=== PATIENT | female | born 1980 | race Caucasian/White ===

== ENCOUNTER 2025-05-23 19:38 | Emergency (ER) | payer BC, SELFPAY ==
[2025-05-23 19:39] VITALS: BMI 31.3
[2025-05-23 20:00] VITALS: BP 156/110; BP 157/108; PULSE 72; RESP 17; TEMP 36.9; O2SAT 98
--- NOTE | 2025-05-23 20:04 | EKG_ITS ---
[facility] Test Date: 2025-05-23 Pat Name: CHER NAGY Department: Room: - Gender: Female [employer]: : 1980 Requested By: Homer Armstrong Order Number: [id number] Reading MD: Homer Armstrong Measurements Intervals [place] Rate: 71 P: 30 ND: 151 QRS: 48 QRSD: 82 T: 38 QT: 395 QTc: 429 Interpretive Statements SINUS RHYTHM WITH SINUS ARRHYTHMIA No previous ECG available for comparison /store/S0/[id number]
--- NOTE | 2025-05-23 20:05 | XR_ITS ---
Examination: CT brain head without contrast. 2-D sagittal coronal reconstructions Date and time of exam:May 23, 2025, 2106 hours INDICATIONS: Dizziness vomiting beginning 2 days ago CTDI: vol (mGy):48.3 DLP: (mGycm):927 Technique: Multiple CT axial sections of the brain have been obtained, 5 mm slice thickness. Contrast has not been administered. 2-D sagittal, coronal reconstructions have been obtained Low dose protocols were performed. One or more of the following dose reduction techniques were used; automated exposure control, adjustment of the mA and/or KV according to patient size, use of iterative reconstruction technique. Findings: No significant ventricular enlargement. Intra-axial or extra-axial hemorrhage density is not seen. No mass effect or midline shift Basal cisterns are not remarkable. Fourth ventricle is midline. Cranial vault intact. Impression: Negative for acute hemorrhage, mass effect or midline shift Advise clinical correlation follow up accordingly
--- NOTE | 2025-05-23 20:05 | PD.EDRME ---
Rapid Medical Screening Exam E Arrival date/time: 05/23/25 19:38 Chief Complaint: Dizziness Time Seen by Provider: 05/23/25 19:44 Vital signs: Vital Signs Temperature 98.5 F 05/23/25 20:00 Pulse Rate 72 05/23/25 20:00 Respiratory Rate 17 05/23/25 20:00 Blood Pressure 156/110 H 05/23/25 20:00 Pulse Oximetry (%) 98 05/23/25 20:00 Oxygen Delivery Method Room Air 05/23/25 20:00 [facility] Narrative: Dizziness/vertigo and vomiting since yesterday. Denies fever, URI symptoms, ear pain, headache
[2025-05-23 20:34] LABS: Basophils # (Auto) 0.1 Thou/mm3 (0.0-0.2); Basophils % (Auto) 1 % (0-2.5); Eosinophils # (Auto) 0.1 Thou/mm3 (0.0-0.5); Eosinophils % (Auto) 0 % (0-10); Hematocrit 41.8 % (36.0-46.0); Immature Granulocytes % (Auto) 0 % (0-0); Immature Granulocytes Auto 0.06 Thou/mm3 (0.00-0.00); Lymphocytes # (Auto) 2.6 Thou/mm3 (1.0-4.8); Lymphocytes % (Auto) 16 % (10-50); Mean Corpuscular HGB Conc 33.5 g/dl (31.0-37.0); Mean Corpuscular Hemoglobin 29.2 pg (25.0-35.0); Mean Corpuscular Volume 87 fL (80-100); Monocytes # (Auto) 0.9 Thou/mm3 (0.0-0.8); Monocytes % (Auto) 5 % (0-12); Neutrophils # (Auto) 12.5 Thou/mm3 (1.8-7.7); Neutrophils % (Auto) 77 % (37-80); Nucleated Red Blood Cell % 0 /100 WBC (0); Platelet Count 267 Thou/mm3 (140-440); RDW Standard Deviation 45.1 fL (36.4-46.3); Red Blood Count 4.79 Miln/mm3 (4.00-5.20); White Blood Count 16.1 Thou/mm3 (3.6-11.0)
[2025-05-23] MEDS: ONDANSETRON INJ 2 MG/ML INJ 2 ML 4 MG IM (20:34)
[2025-05-23] MEDS: DIAZEPAM 5 MG TABLET PO (20:55)
[2025-05-23 20:56] LABS: Alanine Aminotransferase 18 U/L (10-49); Albumin, Serum 4.8 gm/dL (3.5-5.0); Albumin/Globulin Ratio 2.2 (1.2-2.2); Alkaline Phosphatase 72 U/L (46-116); Anion Gap 12 (7-16); Aspartate Amino Transferase 17 U/L (0-34); BUN/Creatinine Ratio 11 Ratio (12-20); Bilirubin,Total 0.6 mg/dL (0.3-1.2); Blood Urea Nitrogen 11 mg/dL (9-23); Calcium 9.9 mg/dL (8.3-10.6); Calcium (Corrected) 9.9 mg/dL (8.5-10.1); Carbon Dioxide 22.4 mMol/L (20.0-31.0); Chloride 103 mMol/L (98-107); Estimated Creatinine Clearance 82.1 mL/min (>60); Globulin 2.2 gm/dL (2.3-3.5); Glucose 136 mg/dL (74-106); Osmolality,Calculated 275 (275-295); Potassium 3.7 mMol/L (3.4-5.1); Sodium 137 mMol/L (136-145); Troponin I < 0.002 ng/mL (0.0-0.045); eGFR > 60 See Note
[2025-05-23 22:40] LABS: Collection Type, Urine Clean Catch
[2025-05-23 22:55] LABS: Amorphous Crystals,Urine Present (Absent); Bacteria,Urine 2+; Bilirubin,Urine Negative (Negative); Blood,Urine Negative (Negative); Clarity,Urine Turbid (Clear/Hazy); Color,Urine Lt-Yellow (Lt Yel-Yel); Glucose, Urine Negative (Negative); Ketones,Urine 1+ (Negative); Leukocyte Esterase,Urine Negative (Negative); Nitrite,Urine Negative (Negative); PH,Urine 7.5 (5.0-7.0); Protein,Urine Trace (Neg - Trace); RBC,Urine 8 /hpf (0-3); Specific Gravity,Urine 1.021 (1.001-1.035); Squamous Epithelial Cell,Urine 2 /hpf (0-5); Urobilinogen,Urine Negative mg/dL (0.0-1.0); WBC,Urine 1 /hpf (0-5)
[2025-05-24 00:42] VITALS: BP 162/104; PULSE 73; RESP 19; TEMP 36.5; O2SAT 100
--- NOTE | 2025-05-24 00:42 | PD.EDDIZZY ---
ED Dizzyness RME/HPI General Chief Complaint: Dizziness Stated Complaint: VERITIGO Time Seen by Provider: 05/23/25 19:44 Source: patient, family, RN notes reviewed and old records reviewed Arrival date/time: 05/23/25 19:38 Mode of arrival: wheelchair Limitations: no limitations RME / HPI RME / HPI Narrative: 45yof healthy female presents to ED for dizziness/vertigo that initiated yesterday. Denies hx of vertigo. Patient states dizziness worsens with position and head movement, reports multiple episodes of nausea/vomiting today. No fever, URI symptoms, ear pain, headache, vision changes, sob, cp or syncope reported. No medication so treatments since symptom onset. Related Data Previous Rx's ?Medication ?Instructions ?Recorded meclizine 25 mg tablet 25 mg PO Q8HR PRN dizziness #20 05/24/25 tabs ondansetron 4 mg disintegrating 4 mg PO Q6H PRN nausea and 05/24/25 tablet vomiting #10 tabs Allergies Allergy/AdvReac Type Severity Reaction Status Date / Time No Known Allergies Allergy Verified 05/24/25 07:50 Review of Systems Review of Systems Systems Reviewed: All systems reviewed, normal except as documented Constitutional Constitutional: Denies chills, Denies fever(s) and Denies headache(s) Eyes Eyes: Denies blurry vision and Denies loss of vision ENT Ears, Nose, Mouth, and Throat: Denies otalgia, Denies headache(s), Denies nasal congestion and Reports vertigo Cardiovascular Cardiovascular: Denies chest pain, Denies dyspnea and Denies syncope Respiratory Respiratory: Denies dyspnea Gastrointestinal Gastrointestinal: Denies abdominal pain, Reports nausea and Reports vomiting Neurologic Neurologic: Denies localized weakness, Denies headache(s), Denies loss of vision, Denies syncope and Reports vertigo Past Medical History Past Medical History GASTROINTESTINAL: Positive Obesity Surgical History OTHER SURGICAL HX: denies pshx Social History SMOKING STATUS: Never smoker SUBSTANCE USE: does not use ALCOHOL: Never ED Exam General Limitations: Present no limitations General appearance: Present alert and in no apparent distress Head Head exam: Present atraumatic and normocephalic Eye Eye exam: Present normal appearance, PERRL and EOMI ENT ENT exam: Present normal exam and mucous membranes moist Neck Neck exam: Present normal inspection and full ROM Chest Chest inspection: Present normal inspection and symmetric chest wall rise Respiratory Respiratory exam: Present normal lung sounds bilaterally; Absent respiratory distress Cardiovascular Cardiovascular exam: Present regular rate and normal rhythm Abdominal Exam Abdominal exam: Present soft; Absent distention or tenderness Extremities Exam Extremities exam: Present normal inspection and full ROM Neurological Exam Neurological exam: Present alert, oriented X3 and CN II-XII intact; Absent motor sensory deficit Psychiatric Psychiatric exam: Present normal affect and normal mood Skin Skin exam: Present warm, dry and intact Course Course Course Narrative: 0040: Patient states she is still feeling dizzy after Valium and Zofran. CT head is negative. Labs reassuring. Offered IVF and MRI brain however, patient does not want to wait in the ED overnight. States she will drink pedialyte at home and return in the morning for MRI imaging. Quality Measures none Orders Category Date Time Status EKG (ED ONLY) *Do not use* NOW Care 05/23/25 20:[address] head/brain wo con Stat Exams 05/23/25 20:05 Completed EKG (ED Only) Stat Exams 05/23/25 20:04 Draft CBC Stat Lab 05/23/25 20:16 Completed CMP [Comprehensive Metabolic Panel] Stat Lab 05/23/25 20:16 Completed Troponin I Stat Lab 05/23/25 20:16 Completed UA [Urinalysis] Stat Lab 05/23/25 22:27 Completed Diazepam [Valium] Med 05/23/25 20:06 Discontinued 5 mg PO X1 ONE Ondansetron Inj [Zofran Inj] Med 05/23/25 20:20 Discontinued 4 mg IM X1 ONE Ondansetron Odt [Zofran Odt] Med 05/23/25 20:06 Discontinued 4 mg PO X1 ONE Vital Signs Vital signs: Vital Signs Temperature 98.5 F 05/23/25 20:00 Pulse Rate 72 05/23/25 20:00 Respiratory Rate 17 05/23/25 20:00 Blood Pressure 156/110 H 05/23/25 20:00 Pulse Oximetry (%) 98 05/23/25 20:00 Oxygen Delivery Method Room Air 05/23/25 20:00 PROCEDURES: EKG Interpretation #1: Date of EK05/23/25 Rate: 71 Interpretation: Interpreted by me EKG Impression: Normal sinus rhythm, No acute ST-T changes, No ectopy, No ischemic changes, Normal QRS, Normal intervals and Normal axis Additional EKG comment: No stemi Dizziness MDM Narrative MDM Narrative:: 45yof healthy female presents to ED for dizziness/vertigo that initiated yesterday. Denies hx of vertigo. Patient states dizziness worsens with head movement, reports multiple episodes of nausea/vomiting today. No fever, URI symptoms, ear pain, headache, vision changes, sob, cp or syncope reported. No medication so treatments since symptom onset. Patient reassessed. Vertigo has mildly improved but still present. Patient trying to limit head movements to decrease symptoms. ED workup reassuring, patient is neurologically intact. Due to persistent vertigo, MRI brain was recommended. Patient wishes to return to ED in morning for imaging. She is tolerating po in ED. Stable for discharge, strict RTED precautions given. Patient data External records reviewed:: None (No prior visits) Clinical information provided by:: patient Social determinants that could affect healthcare access:: none Patient has the following chronic illnesses:: obesity How is presenting disease/condition affected by chronic disease/condition?: uneffected by Evaluation data The following diagnostics were reviewed and interpreted by me:: lab results, radiology exam(s) and EKG tracing(s) Lab and/or radiology exams considered but not ordered:: none Interpretation Summary: + leukocytosis, wbc 16. Most likely related to stress response and recent nausea/vomiting No anemia Negative troponin No UTI CT head negative for ICH per my read Medications / Prescriptions Medications or Prescriptions considered but not ordered:: No antibiotics recommended at this time Medication administrations:: Medication Administration History Discontinued Medications Diazepam (Diazepam 5 Mg Tablet) 5 mg PO X1 ONE Stop: 05/23/25 20:07 Last Admin: 05/23/25 20:55 Dose: 5 mg Documented By: Ondansetron HCl (Ondansetron Odt 4 Mg Tabrap) 4 mg PO X1 ONE; Protocol Stop: 05/23/25 20:07 Last Admin: 05/23/25 21:33 Dose: Not Given Documented By: Non-Admin Reason: Cancelled by Provider Ondansetron HCl (Ondansetron Inj 2 Mg/Ml Inj 2 Ml) 4 mg IM X1 ONE; Protocol Stop: 05/23/25 20:21 Last Admin: 05/23/25 20:34 Dose: 4 mg Documented By: Above medications administered in ED Consultations Consultation(s) initiated? (list below): No Diagnosis Dizziness Differential Diagnosis: other (BPPV, vertigo, CVA, electrolyte imbalance, dehydration, allergic reaction, hypotension) Most likely diagnosis given after review of the tests above:: Vertigo Admission Indicated Admission indicated?: not indicated Admission Request Was there a request for admission?: No Disposition Plan Disposition Plan: Discharge Discharge Attestation Discharge Attestation: The patient and all family members were given an opportunity to ask questions and understood the discharge instructions. Discharge instructions specifically effects, indications for sooner follow up or return to the emergency department, and the expected course of current diagnosis. Patient condition: Stable Discharge Plan Plan Patient Disposition: HOME (Self Care) Patient condition on transfer: Stable Prescriptions/Referrals Prescriptions/Med Rec: New ondansetron 4 mg tablet,disintegrating 4 mg PO Q6H PRN (Reason: nausea and vomiting) Qty: 10 0RF meclizine 25 mg tablet 25 mg PO Q8HR PRN (Reason: dizziness) Qty: 20 0RF Referrals: Poonam Bae MD [Primary Care Provider] - In 1 week Problem List Clinical Impression: Vertigo Patient/Caregiver Discharge Instructions Education Materials: ED Dizziness, Uncertain Cause Print Language: Egyptian Stand Alone Forms: Paula Award Info., Patient Portal Info Letter PA/SALES AND TRAINING SPECIALIST Supervising Physician PA/SALES AND TRAINING SPECIALIST Supervising Physician: Niko
== END 2025-05-24 00:48 | disposition home or self-care (01) ==
PROVIDERS: Physician Assistant; Emergency Provider Emergency Medicine; PCP Family Medicine
DX: R42 Dizziness and giddiness (principal); I49.8 Other specified cardiac arrhythmias
CPT/HCPCS: 36415; 70450; 80053; 81001; 84484; 85025; 96372; 99283; J2405; A9270

== ENCOUNTER 2025-05-24 07:46 | Emergency (ER) | payer BC, SELFPAY ==
--- NOTE | 2025-05-24 | XR_ITS ---
Examination: MRI brain without intravenous contrast. Date and time of exam: May 24, 2025 1230 hours INDICATIONS: Dizziness vomiting beginning 2 days ago Technique: Multiple axial and sagittal images of the brain obtained. Siemens high-resolution 1.5 Kaylee short bore scanners utilized. Sagittal sections, T1-weighted, TR 500, TE 14, are performed. Axial sections proton-density and T2-weighted have been obtained. Inversion recovery axial images, TR 9, 260, TE 111, TI 2500. Diffusion weighted images, axial sections, TR 4800, TE 128, B value 1000 Axial sections, ADC map, TR 4800, TE 128 Findings: Enlargement of the sella turcica is not present. The optic chiasm and infundibular are not remarkable. Prepontine and interpeduncular cisterns are not enlarged. There is no localized enlargement of the medulla or shalom. Fourth ventricle and cerebellar tonsils appear normal in position. No subacute area of hemorrhage density is seen. Mass in the cerebellopontine angle region is not evident. Globes symmetrical. Orbital musculature including medial lateral rectus muscles do not exhibit abnormality. Diffusion-weighted images demonstrate no focus of restricted diffusion. Increased white matter signal not seen Mass effect upon the ventricular system is not identified. Impression: Negative for acute hemorrhage, mass effect or midline shift No acute infarct No MR findings diagnostic for demyelinating disease
[2025-05-24 07:54] VITALS: BP 130/93; PULSE 80; RESP 17; TEMP 36.6; O2SAT 98; BMI 31.8
[2025-05-24 08:30] LABS: Basophils % (Auto) 0 % (0-2.5); Eosinophils % (Auto) 0 % (0-10); Hematocrit 40.2 % (36.0-46.0); Immature Granulocytes % (Auto) 0 % (0-0); Immature Granulocytes Auto 0.04 Thou/mm3 (0.00-0.00); Lymphocytes # (Auto) 2.1 Thou/mm3 (1.0-4.8); Lymphocytes % (Auto) 17 % (10-50); Mean Corpuscular HGB Conc 34.8 g/dl (31.0-37.0); Mean Corpuscular Hemoglobin 29.2 pg (25.0-35.0); Mean Corpuscular Volume 84 fL (80-100); Monocytes # (Auto) 0.8 Thou/mm3 (0.0-0.8); Monocytes % (Auto) 6 % (0-12); Neutrophils # (Auto) 9.6 Thou/mm3 (1.8-7.7); Neutrophils % (Auto) 76 % (37-80); Nucleated Red Blood Cell % 0 /100 WBC (0); Platelet Count 227 Thou/mm3 (140-440); RDW Standard Deviation 43.3 fL (36.4-46.3); White Blood Count 12.6 Thou/mm3 (3.6-11.0)
[2025-05-24] MEDS: SCOPOLAMINE 1 MG TDSY TOP ×2 (08:47→16:14)
[2025-05-24 08:55] LABS: Alanine Aminotransferase 16 U/L (10-49); Albumin, Serum 4.4 gm/dL (3.5-5.0); Albumin/Globulin Ratio 1.7 (1.2-2.2); Alkaline Phosphatase 67 U/L (46-116); Anion Gap 7 (7-16); Aspartate Amino Transferase 14 U/L (0-34); BUN/Creatinine Ratio 12 Ratio (12-20); Bilirubin,Total 0.8 mg/dL (0.3-1.2); Blood Urea Nitrogen 11 mg/dL (9-23); Calcium 9.2 mg/dL (8.3-10.6); Calcium (Corrected) 9.2 mg/dL (8.5-10.1); Carbon Dioxide 23.6 mMol/L (20.0-31.0); Chloride 107 mMol/L (98-107); Creatinine (Component) 0.9 mg/dL (0.6-1.3); Estimated Creatinine Clearance 88.9 mL/min (>60); Globulin 2.6 gm/dL (2.3-3.5); Glucose 128 mg/dL (74-106); Lipase 26 U/L (12-53); Osmolality,Calculated 277 (275-295); Sodium 138 mMol/L (136-145); eGFR > 60 See Note
[2025-05-24 09:50] LABS: Collection Type, Urine Voided
[2025-05-24 10:00] LABS: Bacteria,Urine 1+; Bilirubin,Urine Negative (Negative); Blood,Urine Negative (Negative); Clarity,Urine Clear (Clear/Hazy); Color,Urine Yellow (Lt Yel-Yel); Glucose, Urine Negative (Negative); Ketones,Urine 1+ (Negative); Leukocyte Esterase,Urine Negative (Negative); Nitrite,Urine Negative (Negative); Protein,Urine Trace (Neg - Trace); RBC,Urine 4 /hpf (0-3); Squamous Epithelial Cell,Urine 1 /hpf (0-5); Urobilinogen,Urine Negative mg/dL (0.0-1.0); WBC,Urine 1 /hpf (0-5)
[2025-05-24 10:10] LABS: Culture Indicated,Urine Yes
--- NOTE | 2025-05-24 12:53 | PD.EDRME ---
Rapid Medical Screening Exam RME Arrival date/time: 05/24/25 07:46 Chief Complaint: Dizziness Time Seen by Provider: 05/24/25 07:49 Vital signs: Vital Signs Temperature 97.8 F 05/24/25 07:54 Pulse Rate 80 05/24/25 07:54 Respiratory Rate 17 05/24/25 07:54 Blood Pressure 130/93 H 05/24/25 07:54 Pulse Oximetry (%) 98 05/24/25 07:54 Oxygen Delivery Method Room Air 05/24/25 07:54 RME Narrative: 45-year-old patient presents emergency department with complaint of dizziness for the past 2 weeks she denies any head trauma. She was seen here yesterday CT head was done that was unremarkable patient told to return to emergency department for MRI of the head and IV fluids. Patient states that her dizziness has persisted.
[2025-05-24] MEDS: SODIUM CHLORIDE 0.9% 1000 ML 1,000 ML 999 ML IV (13:28)
--- NOTE | 2025-05-24 16:05 | EDNOTE_ITS ---
ED Dizzyness RME/HPI General Chief Complaint: Dizziness Stated Complaint: Dizziness, nausea, needs MRI Time Seen by Provider: 05/24/25 07:49 Arrival date/time: 05/24/25 07:46 RME / HPI RME / HPI Narrative: 45-year-old patient presents emergency department with complaint of dizziness for the past 2 weeks she denies any head trauma. She was seen here yesterday CT head was done that was unremarkable patient told to return to emergency d epartment for MRI of the head and IV fluids. Patient states that her dizziness has persisted. Related Data Previous Rx's ?Medication ?Instructions ?Recorded meclizine 25 mg tablet 25 mg PO Q8HR PRN dizziness #20 05/24/25 tabs ondansetron 4 mg disintegrating 4 mg PO Q6H PRN nausea and 05/24/25 tablet vomiting #10 tabs Allergies Allergy/AdvReac Type Severity Reaction Status Date / Time No Known Allergies Allergy Verified 05/24/25 07:50 Review of Systems Review of Systems Systems Reviewed: All systems reviewed, normal except as documented Constitutional Constitutional: Reports system reviewed and no additional complaints, except as documented ENT Ears, Nose, Mouth, and Throat: Reports system reviewed and no additional complaints, except as documented Cardiovascular Cardiovascular: Reports system reviewed and no additional complaints, except as documented Respiratory Respiratory: Reports system reviewed and no additional complaints, except as documented Gastrointestinal Gastrointestinal: Reports system reviewed and no additional complaints, except as documented Genitourinary Genitourinary: Reports system reviewed and no additional complaints, except as documented Musculoskeletal Musculoskeletal: Reports system reviewed and no additional complaints, except as documented Neurologic Neurologic: Reports system reviewed and no additional complaints, except as documented Psychiatric Psychiatric: Reports system reviewed and no additional complaints, except as documented Endocrine Endocrine: Reports system reviewed and no additional complaints, except as documented Hematologic/Lymphatic Hematologic/Lymphatic: Reports system reviewed and no additional complaints, except as documented ED Exam General General appearance: Present alert and in no apparent distress Head Head exam: Present atraumatic and normocephalic Eye Eye exam: Present normal appearance, PERRL and EOMI ENT ENT exam: Present normal exam and normal oropharynx Chest Chest inspection: Present normal inspection and symmetric chest wall rise Respiratory Respiratory exam: Present normal lung sounds bilaterally Cardiovascular Cardiovascular exam: Present regular rate and normal rhythm Abdominal Exam Abdominal exam: Present soft Course Quality Measures none Orders Category Date Time Status MRI Screening NOW Care 05/24/25 08:49 Completed MR head/brain wo con Stat Exams 05/24/25 Completed CBC Stat Lab 05/24/25 08:23 Completed CMP [Comprehensive Metabolic Panel] Stat Lab 05/24/25 08:23 Completed Lipase Stat Lab 05/24/25 08:23 Completed Urinalysis, C/S if Indicated Stat Lab 05/24/25 09:28 Completed Urine Culture Stat Lab 05/24/25 09:28 Completed Scopolamine [Transderm-Scop Patch] Med 05/24/25 16:15 Discontinued 1 mg TOP NOW ONE Scopolamine [Transderm-Scop Patch] Med 05/24/25 08:09 Discontinued 1 mg TOP X1 ONE Sodium Chloride 0.9% 1000 ml [Ns] 1,000 ml Med 05/24/25 10:28 Discontinued IV 999 mls/hr Vital Signs Vital signs: Vital Signs Temperature 97.8 F 05/24/25 07:54 Pulse Rate 80 05/24/25 07:54 Respiratory Rate 17 05/24/25 07:54 Blood Pressure 130/93 H 05/24/25 07:54 Pulse Oximetry (%) 98 05/24/25 07:54 Oxygen Delivery Method Room Air 05/24/25 07:54 Dizziness MDM Narrative MDM Narrative:: MRI negative for brain bleed, masses or tumors. s/s consistent with vertigo Patient data External records reviewed:: None Clinical information provided by:: patient Social determinants that could affect healthcare access:: none Patient has the following chronic illnesses:: na How is presenting disease/condition affected by chronic disease/condition?: no chronic disease Evaluation data The following diagnostics were reviewed and interpreted by me:: lab results and radiology exam(s) Lab and/or radiology exams considered but not ordered:: both considered and ordered Interpretation Summary: unremarkable MRI Medications / Prescriptions Medications or Prescriptions considered but not ordered:: both considered and ordered Medication administrations:: Medication Administration History Discontinued Medications Sodium Chloride (Ns) 1,000 mls @ 999 mls/hr IV .Q1H1M ONE Stop: 05/24/25 11:28 Last Infusion: 05/24/25 16:08 Dose: Infused Documented By: Admin: 05/24/25 13:28 Dose: 999 mls/hr Documented By: MANDY Scopolamine (Scopolamine 1 Mg Tdsy) 1 mg TOP X1 ONE Stop: 05/24/25 08:10 Last Admin: 05/24/25 08:47 Dose: 1 mg Documented By: MANDY Scopolamine (Scopolamine 1 Mg Tdsy) 1 mg TOP NOW ONE; Protocol Stop: 05/24/25 16:16 Last Admin: 05/24/25 16:14 Dose: 1 mg Documented By: MANDY Comments: taken off for MRI per above Consultations Consultation(s) initiated? (list below): No Diagnosis Dizziness Differential Diagnosis: adverse reaction to drug, benign paroxysmal positional vertigo, orthostatic hypotension, cerebrovascular accident, acute vestibular neuronitis and transient cerebral ischemia Most likely diagnosis given after review of the tests above:: vertigo Admission Indicated Admission indicated?: not indicated Explain why admission is indicated or not indicated:: no life threatening emergency noyed Admission Request Was there a request for admission?: No Disposition Plan Disposition Plan: Discharge Discharge Attestation Discharge Attestation: The patient and all family members were given an opportunity to ask questions and understood the discharge instructions. Discharge instructions specifically effects, indications for sooner follow up or return to the emergency department, and the expected course of current diagnosis. Patient condition: Stable Discharge Plan Plan Patient Disposition: HOME (Self Care) Prescriptions/Referrals Prescriptions/Med Rec: No Action ondansetron 4 mg tablet,disintegrating 4 mg PO Q6H PRN (Reason: nausea and vomiting) Qty: 10 0RF meclizine 25 mg tablet 25 mg PO Q8HR PRN (Reason: dizziness) Qty: 20 0RF Referrals: Poonam Bae MD [Primary Care Provider] - In 1 week Problem List Clinical Impression: Vertigo, Benign paroxysmal positional vertigo Patient/Caregiver Discharge Instructions Education Materials: Vertigo Medicine Tx, ED BPV Vertigo Print Language: [place] Islander Stand Alone Forms: Paula Award Info., Patient Portal Info Letter
== END 2025-05-24 16:27 | disposition home or self-care (01) ==
PROVIDERS: Physician Assistant; Emergency Provider Emergency Medicine; PCP Family Medicine
DX: R42 Dizziness and giddiness (principal); R11.2 Nausea with vomiting, unspecified
CPT/HCPCS: 36415; 70551; 80053; 81001; 83690; 85025; 87086; 96360; 96361; 99284; J7030; A9270